=== PATIENT | female | born 1970 | race Caucasian/White ===

== ENCOUNTER 2022-09-20 13:20 | Emergency (ER) | payer OTHER, SELFPAY ==
[2022-09-20 13:28] VITALS: BP 167/74; PULSE 81; RESP 16; TEMP 36.3; O2SAT 99; BMI 29.0
--- NOTE | 2022-09-20 13:36 | XRR_ITS ---
PROCEDURE INFORMATION: Exam: XR Right Elbow Exam date and time: 09/20/2022 1:52 PM Age: 52 years old Clinical indication: Injury or trauma; Fall; Dislocation; Elbow; Right; Additional info: Trauma, pain, prob dislocation TECHNIQUE: Imaging protocol: Radiologic exam of the right elbow. Views: 1 or 2 views. COMPARISON: No relevant prior studies available. FINDINGS: Bones/joints: Posterior dislocation of the right elbow is seen, with posterolateral position of the proximal ulna in relation to the distal humerus. No definite fracture seen. Soft tissues: Soft tissue posterior fat pad on the lateral view indicates component of effusion. XR/XR elbow RT 2V [id number] IMPRESSION: Posterior dislocation of the right elbow, for follow-up relocation.
[2022-09-20 13:49] VITALS: RESP 14; O2SAT 100
[2022-09-20] MEDS: fentaNYL 50 mcg/mL INJ 2mL 100 MCG IVP (13:49)
[2022-09-20] MEDS: ondansetron 2 mg/ML SDV 2 mL 4 MG IVP (13:49)
[2022-09-20] MEDS: sodium chloride 0.9% 1,000 ML 999 ML IV (13:49)
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
[2022-09-20 15:10] VITALS: BP 138/85; PULSE 95; RESP 14; TEMP 36.8; O2SAT 99
[2022-09-20 15:20] VITALS: BP 144/85; PULSE 102; RESP 14; O2SAT 98
--- NOTE | 2022-09-20 15:23 | XRR_ITS ---
PROCEDURE INFORMATION: Exam: XR Right Elbow Exam date and time: 09/20/2022 3:25 PM Age: 52 years old Clinical indication: Injury or trauma; Fall; Other: Post reduction TECHNIQUE: Imaging protocol: Radiologic exam of the right elbow. Views: 1 or 2 views. COMPARISON: CR XR elbow RT 2V [id number] 09/20/2022 1:52 PM FINDINGS: Bones/joints: Exam demonstrates successful relocation of previous posterior dislocation of the right elbow when correlated with earlier exam. No fracture or fracture line is seen. No findings to indicate significant loose body within the joint. Soft tissues: Soft tissues show no abnormal calcification. XR/XR elbow RT 2V [id number] IMPRESSION: Successful relocation of previous dislocation of the right elbow, without identification of fracture.
[2022-09-20 15:25] VITALS: BP 165/101; PULSE 99; RESP 16; O2SAT 98
[2022-09-20 15:30] VITALS: BP 134/98; PULSE 95; RESP 16; O2SAT 98
[2022-09-20] MEDS: ondansetron 4 MG Tablet PO (16:17)
--- NOTE | 2022-09-26 12:10 | DCPLANNER ---
telesales manager called patient due to no primary care physician - [facility]
== END 2022-09-20 16:34 | disposition home or self-care (01) ==
PROVIDERS: Emergency Provider Emergency Medicine
DX: S53.124A Posterior dislocation of right ulnohumeral joint, initial encounter (principal); X58.XXXA Exposure to other specified factors, initial encounter; Y93.16 Activity, rowing, canoeing, kayaking, rafting and tubing; Y92.828 Other wilderness area as the place of occurrence of the external cause
CPT/HCPCS: 24600; 73070; 96361; 96374; 96375; 99284; J2405; J3010; J3490; J7030; Q0162